=== PATIENT | male | born 1965 | race Two or more races ===

== ENCOUNTER 2021-02-01 16:42 | Emergency (ER) | payer OTHER ==
[~2021-02-01] VITALS: Ht 157.5 cm; Wt 83.6 kg
--- NOTE | 2021-02-01 17:10 | NUR ---
PT AMBULATED TO ER BED 2 WITH A STEADY GAIT.
[2021-02-01 17:14] VITALS: BP 161/116
--- NOTE | 2021-02-01 17:24 | NUR ---
55 Y/O MALE C/O EPIGASTRIC PAIN 9/10 NON-RADIATING X3DAYS. PT DENIES N/V/D. DENIES FEVER/CHILLS. DENIES CP, DENIES SOB AT THIS TIME. ABDOMEN IS SOFT, LARGE DISTENDED, NON-TENDER TO PALPATION, BOWEL SOUNDS ACTIVE X4. PMH: HTN NKA
[2021-02-01] MEDS ORDERED: AMLO5TAB PO (17:30)
[2021-02-01] MEDS ORDERED: LOSA100T1 PO (17:30)
[2021-02-01] MEDS ORDERED: [UNRECOGNIZED DRUG - OTHER] PO (17:31)
[2021-02-01] MEDS ORDERED: ONDANSETRON 4 MG/2 ML VIAL IVP ONE (18:05)
[2021-02-01] MEDS ORDERED: MORPHINE SULFATE 4 MG/ML SYR IVP ONE (18:05)
[2021-02-01] MEDS ORDERED: NACL 0.9% 1,000 ML IV ONE (18:05)
[2021-02-01 18:31] LABS: BASOPHILS # (AUTO) 0.1 K/uL (0.00-0.22); EOSINOPHILS # (AUTO) 0.2 K/uL (0-0.4); EOSINOPHILS % (AUTO) 2.6 % (0.0-4.0); HEMATOCRIT 38.4 % (36-52); HEMOGLOBIN 12.4 g/dL (12.0-18.0); LYMPHOCYTES # (AUTO) 1.6 K/uL (2.0-11.5); LYMPHOCYTES % (AUTO) 20.4 % (20.5-51.1); MEAN CORPUSCULAR HEMOGLOBIN 26 pg (27-31); MEAN CORPUSCULAR HGB CONC 32 g/dL (33-37); MEAN CORPUSCULAR VOLUME 79.6 fL (80-94); MONOCYTES # (AUTO) 0.6 K/uL (0.8-1.0); MONOCYTES % (AUTO) 7.2 % (1.7-9.3); NEUTROPHILS # (AUTO) 5.3 K/uL (1.8-7.7); NEUTROPHILS % (AUTO) 68.8 % (42.2-75.2); PLATELET COUNT (AUTO) 262 K/uL (140-450); RED BLOOD CELL COUNT(AUTO) 4.82 MIL/uL (4.20-6.10); RED CELL DISTRIBUTION WIDTH 17.7 % (11.6-13.7); WHITE BLOOD COUNT (AUTO) 7.7 K/uL (4.8-10.8)
--- NOTE | 2021-02-01 18:38 | NUR ---
PT SENT TO CT WITH TECH [id number]
[2021-02-01 18:43] LABS: ALBUMIN 3.6 g/dL (3.4-5.0); CARBON DIOXIDE 23.5 mmol/L (21-32); CREATININE 1.5 mg/dL (0.6-1.3); POTASSIUM 3.5 mmol/L (3.5-5.1); TOTAL BILIRUBIN 1.3 mg/dL (0.0-1.0)
--- NOTE | 2021-02-01 18:51 | NUR ---
PT TAKEN TO ER BED 2 VIA [facility].
[2021-02-01 18:53] LABS: APPEARANCE,URINE CLEAR (CLEAR); BILIRUBIN,URINE NEGATIVE (NEGATIVE); BLOOD, URINE TRACE-I (NEGATIVE); COLOR,URINE YELLOW (YELLOW); LEUKOCYTE ESTERASE ,URINE NEGATIVE (NEGATIVE); NITRITE, URINE NEGATIVE (NEGATIVE); UGLUCOSE NEGATIVE (NEGATIVE)
--- NOTE | 2021-02-01 19:02 | NUR ---
PT RESTING, HOB ELEVATED, VSS, WILL CONTINUE TO MONITOR.
[2021-02-01 19:14] LABS: BARBITURATE, URINE NEGATIVE ng/ml (NEG <=200); BENZODIAZEPINE, URINE NEGATIVE ng/mL (NEG <=200); CANNABINOID, URINE NEGATIVE ng/mL (NEG <=50); COCAINE, URINE NEGATIVE ng/mL (NEG <=300); OPIATE, URINE NEGATIVE ng/mL (NEG <=2000); PHENCYCLIDINE SCREEN,URINE NEGATIVE ng/mL (NEG <=25)
--- NOTE | 2021-02-01 19:30 | NUR ---
GAVE REPORT TO SERGIO OWENS. TRANSFER OF CARE AT THIS TIME.
[2021-02-01] MEDS ORDERED: MAG-27 PO (19:31)
[2021-02-01] MEDS ORDERED: NAPR-54 PO (19:31)
--- NOTE | 2021-02-01 20:00 | NUR ---
RESTING IN BED WITH EYES OPEN. IN NAD. PT STATES"I FEEL BETTER"
[2021-02-01 20:30] VITALS: BP 123/76
--- NOTE | 2021-02-04 19:17 | NUR ---
LATE ENTRY- 0.9% NS DISCONTINUED AT 2014.
== END 2021-02-01 20:30 | disposition home or self-care (01) ==
LOC: MED 16:42
DX: R10.84 Generalized abdominal pain (principal); I10 Essential (primary) hypertension
CPT/HCPCS: 36415; 74176; 80053; 80305; 81003; 83690; 85025; 93005; 96361; 96374; 96375; 99285; J2270; J2405; J7030

== ENCOUNTER 2021-02-02 23:24 | Emergency (ER) | payer OTHER ==
[~2021-02-02] VITALS: Ht 126 cm; Wt 85.4 kg
[~2021-02-02 23:24] MED LIST: AMLO5TAB PO; LOSA100T1 PO; MAG-27 PO; NAPR-54 PO; [UNRECOGNIZED DRUG - OTHER] PO
[2021-02-02 23:59] VITALS: BP 130/95
--- NOTE | 2021-02-03 00:07 | NUR ---
PT AMBULATED TO LOBBY WITH STEADY GAIT.
--- NOTE | 2021-02-03 01:00 | NUR ---
PT AMB TO BED 7
--- NOTE | 2021-02-03 01:14 | NUR ---
ASSUMED CARE OF PATIENT AT THIS TIME. PATIENT REPORTS GENERAL ABDOMINAL PAIN AND WAS SEEN YESTERDAY FOR SAME COMPLAINT
[2021-02-03] MEDS ORDERED: KETOROLAC 60 MG/2 ML VIAL IM ONE (01:45)
--- NOTE | 2021-02-03 02:41 | NUR ---
Dr. Melton examining patient.
[2021-02-03] MEDS ORDERED: OMEP40EC24 PO (02:47)
[2021-02-03] MEDS ORDERED: ACET-8386 PO (02:47)
[2021-02-03] MEDS ORDERED: IBUP-2213 PO (02:47)
[2021-02-03 02:52] VITALS: BP 133/71
--- NOTE | 2021-02-03 02:52 | NUR ---
PATIENT CLEARED FOR DISHCARGE AT THIS TIME. VOICED SOME RELIEF FROM PAIN MEDICATION, ADVISED TO FOLLOW UP WITH PCP AND RETURN IF CONFITION WORSENS. RX SENT TO PHARM. DISCHARGE TEACHING PROVIDED.
== END 2021-02-03 02:52 | disposition home or self-care (01) ==
LOC: MED 23:24
DX: R10.13 Epigastric pain (principal); I10 Essential (primary) hypertension; Z79.899 Other long term (current) drug therapy; Z90.49 Acquired absence of other specified parts of digestive tract
CPT/HCPCS: 96372; 99283; J1885

== ENCOUNTER 2021-12-01 18:04 | Emergency (ER) | payer OTHER ==
[~2021-12-01] VITALS: Ht 165.1 cm; Wt 91.6 kg
[~2021-12-01 18:04] MED LIST changes: +ACET-8386 PO; -AMLO5TAB PO; +ASPI81CT95 PO; +CARV6.252 PO; +FURO-570 PO; +HYDR-4420 PO; +ISOS20TA13 PO; -NAPR-54 PO; +OMEP40EC24 PO; -[UNRECOGNIZED DRUG - OTHER] PO
[2021-12-01 18:10] VITALS: BP 130/87
[2021-12-01 18:52] LABS: BASOPHILS # (AUTO) 0.1 K/uL (0.00-0.22); BASOPHILS % (AUTO) 0.8 % (0.0-2.0); EOSINOPHILS # (AUTO) 0.5 K/uL (0-0.4); EOSINOPHILS % (AUTO) 6.1 % (0.0-4.0); HEMATOCRIT 43.2 % (36-52); HEMOGLOBIN 13.8 g/dL (12.0-18.0); LYMPHOCYTES % (AUTO) 13.2 % (20.5-51.1); MEAN CORPUSCULAR HEMOGLOBIN 25 pg (27-31); MEAN CORPUSCULAR HGB CONC 32 g/dL (33-37); MEAN CORPUSCULAR VOLUME 77.3 fL (80-94); MONOCYTES # (AUTO) 1.3 K/uL (0.8-1.0); MONOCYTES % (AUTO) 17.5 % (1.7-9.3); NEUTROPHILS # (AUTO) 4.6 K/uL (1.8-7.7); NEUTROPHILS % (AUTO) 62.4 % (42.2-75.2); PLATELET COUNT (AUTO) 256 K/uL (140-450); RED BLOOD CELL COUNT(AUTO) 5.59 MIL/uL (4.20-6.10); RED CELL DISTRIBUTION WIDTH 16.1 % (11.6-13.7); WHITE BLOOD COUNT (AUTO) 7.4 K/uL (4.8-10.8)
[2021-12-01 19:07] LABS: ALBUMIN 3.5 g/dL (3.4-5.0); ANION GAP 12.1 (8-16); CARBON DIOXIDE 31.2 mmol/L (21-32); CREATININE 1.6 mg/dL (0.6-1.3); POTASSIUM 3.3 mmol/L (3.5-5.1); TOTAL BILIRUBIN 1.3 mg/dL (0.0-1.0)
[2021-12-01] MEDS ORDERED: FURO-572 PO (20:57)
[2021-12-01] MEDS ORDERED: BENZ100C6 PO (20:57)
[2021-12-01] MEDS ORDERED: ROB PO (20:57)
[2021-12-01 22:35] VITALS: BP 128/76
== END 2021-12-01 22:35 | disposition home or self-care (01) ==
LOC: MED 18:04
DX: I11.0 Hypertensive heart disease with heart failure (principal); I50.9 Heart failure, unspecified; R07.9 Chest pain, unspecified; R05.9 Cough, unspecified; Z20.822 Contact with and (suspected) exposure to COVID-19; Z90.49 Acquired absence of other specified parts of digestive tract; Z79.899 Other long term (current) drug therapy; Z79.82 Long term (current) use of aspirin; Z79.891 Long term (current) use of opiate analgesic
CPT/HCPCS: 36415; 71045; 80053; 83880; 84484; 85025; 85379; 87426; 93005; 99285; Q0092

== ENCOUNTER 2023-04-23 16:23 | Inpatient (IN) | payer OTHER ==
[~2023-04-23] VITALS: Ht 162.6 cm; Wt 87.1 kg
[~2023-04-23 16:23] MED LIST changes: -ACET-8386 PO; +ASPI-1822 PO; -ASPI81CT95 PO; +HYDR-1098 PO; -HYDR-4420 PO; -LOSA100T1 PO; -MAG-27 PO; -OMEP40EC24 PO
[2023-04-23 16:28] VITALS: BP 108/71; PULSE 89; RESP 20; TEMP 98.4; O2SAT 100
[2023-04-23 17:23] LABS: BASOPHILS # (AUTO) 0.1 K/uL (0.00-0.22); BASOPHILS % (AUTO) 0.8 % (0.0-2.0); EOSINOPHILS # (AUTO) 0.2 K/uL (0-0.4); EOSINOPHILS % (AUTO) 3.3 % (0.0-4.0); HEMATOCRIT 41.5 % (36-52); HEMOGLOBIN 13.2 g/dL (12.0-18.0); LYMPHOCYTES # (AUTO) 1.4 K/uL (2.0-11.5); LYMPHOCYTES % (AUTO) 19.4 % (20.5-51.1); MEAN CORPUSCULAR HEMOGLOBIN 25 pg (27-31); MEAN CORPUSCULAR HGB CONC 32 g/dL (33-37); MEAN CORPUSCULAR VOLUME 79.4 fL (80-94); MONOCYTES # (AUTO) 0.6 K/uL (0.8-1.0); MONOCYTES % (AUTO) 7.5 % (1.7-9.3); NEUTROPHILS # (AUTO) 5.1 K/uL (1.8-7.7); PLATELET COUNT (AUTO) 217 K/uL (140-450); RED BLOOD CELL COUNT(AUTO) 5.23 MIL/uL (4.20-6.10); RED CELL DISTRIBUTION WIDTH 17.6 % (11.6-13.7); WHITE BLOOD COUNT (AUTO) 7.3 K/uL (4.8-10.8)
[2023-04-23 17:35] LABS: INR 1.11 (0.8-1.2); PARTIAL THROMBOPLASTIN TIME 27.6 secs (22-35.6); PROTHROMBIN TIME 11.6 secs (10.8-13.4)
[2023-04-23 17:42] LABS: ANION GAP 13.4 (8-16); CALCIUM 8.6 mg/dL (8.5-10.1); CREATININE 1.6 mg/dL (0.6-1.3); POTASSIUM 4.4 mmol/L (3.5-5.1)
[2023-04-23] MEDS: FUROSEMIDE 40 MG/4 ML VIAL IVP ONE (18:15)
[2023-04-23 18:17] LABS: FLU A ANTIGEN negative (NEGATIVE); FLU B ANTIGEN NEGATIVE (NEGATIVE)
[2023-04-23] MEDS ORDERED: POTASSIUM CHLORIDE 10 MEQ TABER PO PRN (19:00)
[2023-04-23] MEDS ORDERED: MAG SULF 2000 MG/WATER PREMIX 50 ML IV PRN (19:00)
[2023-04-23] MEDS ORDERED: KCL 20 MEQ IN 100 mL PREMIX 200 ML IV PRN (19:00)
[2023-04-23] MEDS ORDERED: MAGNESIUM OXIDE 400 MG TAB PO PRN (19:00)
[2023-04-23] MEDS ORDERED: ACETAMINOPHEN 325 MG TAB PO PRN (19:00)
[2023-04-23] MEDS ORDERED: ONDANSETRON 4 MG/2 ML VIAL IVP PRN (19:00)
[2023-04-23] MEDS ORDERED: HYDROcodone/APAP 5/325 MG 1 TAB TAB PO PRN (19:00)
[2023-04-23] MEDS ORDERED: FUROSEMIDE 40 MG/4 ML VIAL IVP ONE (19:36)
[2023-04-23] MEDS: FUROSEMIDE 20 MG/2 ML VIAL IVP SCH (21:15)
[2023-04-24 04:49] LABS: BASOPHILS % (AUTO) 0.6 % (0.0-2.0); EOSINOPHILS # (AUTO) 0.3 K/uL (0-0.4); EOSINOPHILS % (AUTO) 3.4 % (0.0-4.0); HEMATOCRIT 40.7 % (36-52); LYMPHOCYTES # (AUTO) 1.3 K/uL (2.0-11.5); LYMPHOCYTES % (AUTO) 16.1 % (20.5-51.1); MEAN CORPUSCULAR HEMOGLOBIN 25 pg (27-31); MEAN CORPUSCULAR HGB CONC 32 g/dL (33-37); MEAN CORPUSCULAR VOLUME 78.7 fL (80-94); MONOCYTES # (AUTO) 0.6 K/uL (0.8-1.0); MONOCYTES % (AUTO) 7.4 % (1.7-9.3); NEUTROPHILS # (AUTO) 5.9 K/uL (1.8-7.7); NEUTROPHILS % (AUTO) 72.5 % (42.2-75.2); PLATELET COUNT (AUTO) 245 K/uL (140-450); RED BLOOD CELL COUNT(AUTO) 5.17 MIL/uL (4.20-6.10); RED CELL DISTRIBUTION WIDTH 17.4 % (11.6-13.7); WHITE BLOOD COUNT (AUTO) 8.2 K/uL (4.8-10.8)
[2023-04-24 05:39] LABS: ANION GAP 10.3 (8-16); CALCIUM 8.7 mg/dL (8.5-10.1); CARBON DIOXIDE 28.3 mmol/L (21-32); CREATININE 1.6 mg/dL (0.6-1.3); POTASSIUM 3.6 mmol/L (3.5-5.1)
[2023-04-24 05:58] LABS: PHOSPHORUS 2.7 mg/dL (2.5-4.9)
[2023-04-24 09:00] VITALS: PULSE 89; RESP 20; O2SAT 96
[2023-04-24] MEDS: DOCUSATE SODIUM 100 MG GELCAP PO SCH (09:26)
[2023-04-24 12:00] VITALS: BP 127/85; PULSE 63; PULSE 76; RESP 20; TEMP 97.7; O2SAT 97
[2023-04-24 16:00] VITALS: BP 138/98; PULSE 70; RESP 20; TEMP 97.5; O2SAT 97
[2023-04-24 20:00] VITALS: BP 142/106; PULSE 68; PULSE 76; PULSE 83; RESP 17; RESP 19; TEMP 97.4; O2SAT 96; O2SAT 97
[2023-04-25] VITALS: BP 133/99; PULSE 71; PULSE 74; RESP 17; TEMP 98.1; O2SAT 93
[2023-04-25 03:55] VITALS: BP 137/96; PULSE 68; RESP 17; TEMP 98.3; O2SAT 96
[2023-04-25 04:00] VITALS: PULSE 72
[2023-04-25 06:44] LABS: BASOPHILS # (AUTO) 0.1 K/uL (0.00-0.22); BASOPHILS % (AUTO) 0.6 % (0.0-2.0); EOSINOPHILS # (AUTO) 0.3 K/uL (0-0.4); EOSINOPHILS % (AUTO) 3.3 % (0.0-4.0); HEMOGLOBIN 13.8 g/dL (12.0-18.0); LYMPHOCYTES # (AUTO) 1.5 K/uL (2.0-11.5); LYMPHOCYTES % (AUTO) 18.4 % (20.5-51.1); MEAN CORPUSCULAR HEMOGLOBIN 25 pg (27-31); MEAN CORPUSCULAR HGB CONC 32 g/dL (33-37); MEAN CORPUSCULAR VOLUME 78.8 fL (80-94); MONOCYTES # (AUTO) 0.8 K/uL (0.8-1.0); MONOCYTES % (AUTO) 9.2 % (1.7-9.3); NEUTROPHILS # (AUTO) 5.7 K/uL (1.8-7.7); NEUTROPHILS % (AUTO) 68.5 % (42.2-75.2); PLATELET COUNT (AUTO) 252 K/uL (140-450); RED BLOOD CELL COUNT(AUTO) 5.46 MIL/uL (4.20-6.10); RED CELL DISTRIBUTION WIDTH 17.7 % (11.6-13.7); WHITE BLOOD COUNT (AUTO) 8.3 K/uL (4.8-10.8)
[2023-04-25 07:10] LABS: PHOSPHORUS 3.3 mg/dL (2.5-4.9)
[2023-04-25 07:24] LABS: ANION GAP 9.8 (8-16); CALCIUM 8.6 mg/dL (8.5-10.1); CARBON DIOXIDE 30.3 mmol/L (21-32); CREATININE 1.6 mg/dL (0.6-1.3); POTASSIUM 3.1 mmol/L (3.5-5.1)
[2023-04-25 08:00] VITALS: BP 153/90; PULSE 62; PULSE 74; RESP 18; TEMP 96.7; O2SAT 100
[2023-04-25 14:50] VITALS: BP 153/90; PULSE 74; RESP 18; TEMP 96.7
== END 2023-04-25 16:25 | disposition home or self-care (01) | DRG 194 ==
LOC: MED 16:23 → MTU 18:58 → OBSVTOIN 19:04 → MTU 04-24 06:36
PROVIDERS: ADMIT Hospitalist; ATTEND Hospitalist
DX: I11.0 Hypertensive heart disease with heart failure (principal); N17.0 Acute kidney failure with tubular necrosis; E11.9 Type 2 diabetes mellitus without complications; I50.41 Acute combined systolic (congestive) and diastolic (congestive) heart failure; R06.00 Dyspnea, unspecified; R06.03 Acute respiratory distress; Z20.822 Contact with and (suspected) exposure to COVID-19
CPT/HCPCS: 36415; 71045; 80048; 83735; 83880; 84100; 84484; 85025; 85610; 85730; 87081; 93005; 96374; 99285; J1644; J1940

== ENCOUNTER 2023-12-16 10:32 | Emergency (ER) | payer OTHER ==
[~2023-12-16] VITALS: Ht 162.6 cm; Wt 82.1 kg
[2023-12-16 10:34] VITALS: BP 143/97; PULSE 82; RESP 20; TEMP 97.1; O2SAT 100
[2023-12-16] MEDS: FUROSEMIDE 40 MG/4 ML VIAL IVP ONE (11:21)
[2023-12-16 11:31] LABS: BASOPHILS # (AUTO) 0.1 K/uL (0.00-0.22); BASOPHILS % (AUTO) 1.2 % (0.0-2.0); EOSINOPHILS # (AUTO) 0.3 K/uL (0-0.4); HEMATOCRIT 44.8 % (36-52); HEMOGLOBIN 14.1 g/dL (12.0-18.0); LYMPHOCYTES # (AUTO) 1.3 K/uL (2.0-11.5); LYMPHOCYTES % (AUTO) 13.6 % (20.5-51.1); MEAN CORPUSCULAR HEMOGLOBIN 25 pg (27-31); MEAN CORPUSCULAR HGB CONC 31 g/dL (33-37); MEAN CORPUSCULAR VOLUME 79.9 fL (80-94); MONOCYTES # (AUTO) 0.9 K/uL (0.8-1.0); MONOCYTES % (AUTO) 9.7 % (1.7-9.3); NEUTROPHILS # (AUTO) 7.1 K/uL (1.8-7.7); NEUTROPHILS % (AUTO) 72.5 % (42.2-75.2); PLATELET COUNT (AUTO) 252 K/uL (140-450); RED BLOOD CELL COUNT(AUTO) 5.61 MIL/uL (4.20-6.10); RED CELL DISTRIBUTION WIDTH 16.2 % (11.6-13.7); WHITE BLOOD COUNT (AUTO) 9.8 K/uL (4.8-10.8)
[2023-12-16 11:40] LABS: CALCIUM 9.3 mg/dL (8.5-10.1); CARBON DIOXIDE 31.9 mmol/L (21-32); CREATININE 1.7 mg/dL (0.6-1.3); POTASSIUM 3.9 mmol/L (3.5-5.1)
[2023-12-16 11:46] LABS: INR 1.03 (0.8-1.2); PARTIAL THROMBOPLASTIN TIME 25.8 secs (22-35.6); PROTHROMBIN TIME 10.8 secs (10.8-13.4)
[2023-12-16 11:52] LABS: ALANINE AMINOTRANSFERASE 84 U/L (12-78); ALBUMIN 3.5 g/dL (3.4-5.0); ALKALINE PHOSPHATASE 68 U/L (50-136); ASPARTATE AMINOTRANSFERASE 40 U/L (15-37); BILIRUBIN,DIRECT 0.2 mg/dL (0.0-0.3); TOTAL BILIRUBIN 0.8 mg/dL (0.0-1.0); TOTAL PROTEIN, SERUM 7.4 g/dL (6.4-8.2)
[2023-12-16 16:30] VITALS: BP 129/81; PULSE 71; RESP 18; TEMP 97.1; O2SAT 96
== END 2023-12-16 16:34 | disposition home or self-care (01) ==
LOC: MED 10:32
DX: I11.0 Hypertensive heart disease with heart failure (principal); I50.9 Heart failure, unspecified; E11.9 Type 2 diabetes mellitus without complications; Z79.899 Other long term (current) drug therapy
CPT/HCPCS: 36415; 71045; 80048; 80076; 83880; 84484; 85025; 85610; 85730; 93005; 96374; 99285; J1940

== ENCOUNTER 2023-12-28 07:22 | Observation (INO) | payer OTHER ==
[~2023-12-28] VITALS: Ht 162.6 cm; Wt 93.4 kg
[~2023-12-28 07:22] MED LIST changes: -ASPI-1822 PO
[2023-12-28 07:29] VITALS: BP 129/101; PULSE 86; RESP 20; TEMP 98.3; O2SAT 98
[2023-12-28] MEDS: FUROSEMIDE 40 MG/4 ML VIAL IVP ONE (08:12)
[2023-12-28 08:20] LABS: BASOPHILS % (AUTO) 0.4 % (0.0-2.0); EOSINOPHILS # (AUTO) 0.2 K/uL (0-0.4); EOSINOPHILS % (AUTO) 2.3 % (0.0-4.0); HEMATOCRIT 42.8 % (36-52); HEMOGLOBIN 13.5 g/dL (12.0-18.0); LYMPHOCYTES % (AUTO) 14.4 % (20.5-51.1); MEAN CORPUSCULAR HEMOGLOBIN 25 pg (27-31); MEAN CORPUSCULAR HGB CONC 32 g/dL (33-37); MEAN CORPUSCULAR VOLUME 78.9 fL (80-94); MONOCYTES # (AUTO) 0.6 K/uL (0.8-1.0); NEUTROPHILS # (AUTO) 5.3 K/uL (1.8-7.7); NEUTROPHILS % (AUTO) 74.9 % (42.2-75.2); PLATELET COUNT (AUTO) 169 K/uL (140-450); RED BLOOD CELL COUNT(AUTO) 5.42 MIL/uL (4.20-6.10); RED CELL DISTRIBUTION WIDTH 16.3 % (11.6-13.7); WHITE BLOOD COUNT (AUTO) 7.1 K/uL (4.8-10.8)
[2023-12-28 08:38] LABS: ANION GAP 11.1 (8-16); CALCIUM 8.7 mg/dL (8.5-10.1); CARBON DIOXIDE 26.8 mmol/L (21-32); CREATININE 1.5 mg/dL (0.6-1.3); POTASSIUM 3.9 mmol/L (3.5-5.1)
[2023-12-28] MEDS ORDERED: ONDANSETRON 4 MG/2 ML VIAL IVP PRN (10:20)
[2023-12-28] MEDS ORDERED: MAGNESIUM OXIDE 400 MG TAB PO PRN (10:20)
[2023-12-28] MEDS ORDERED: MORPHINE SULFATE 4 MG/ML SYR IVP PRN (10:20)
[2023-12-28] MEDS ORDERED: POTASSIUM CHLORIDE 10 MEQ TABER PO PRN (10:20)
[2023-12-28] MEDS ORDERED: MAG SULF 2000 MG/WATER PREMIX 50 ML IV PRN (10:20)
[2023-12-28] MEDS ORDERED: ACETAMINOPHEN 325 MG TAB PO PRN (10:20)
[2023-12-28 11:33] VITALS: PULSE 60; RESP 20
[2023-12-28 12:00] VITALS: BP 132/88; PULSE 52; PULSE 64; RESP 20; TEMP 97.6; O2SAT 97
[2023-12-28 16:00] VITALS: BP 121/82; PULSE 53; PULSE 60; RESP 20; TEMP 97.6; O2SAT 97
[2023-12-28] MEDS: FUROSEMIDE 40 MG/4 ML VIAL IVP SCH (16:37)
[2023-12-28] MEDS: HYDROcodone/APAP 5/325 MG 1 TAB TAB PO PRN (16:37)
[2023-12-28 20:00] VITALS: BP 110/69; PULSE 57; PULSE 60; PULSE 82; RESP 18; RESP 20; TEMP 97.2; O2SAT 97
[2023-12-29] VITALS: BP 132/94; PULSE 53; PULSE 63; RESP 20; TEMP 97.6; O2SAT 97
[2023-12-29 04:00] VITALS: BP 148/88; PULSE 63; PULSE 69; RESP 18; TEMP 97.3; O2SAT 98
[2023-12-29 05:28] LABS: BASOPHILS % (AUTO) 0.6 % (0.0-2.0); EOSINOPHILS # (AUTO) 0.3 K/uL (0-0.4); EOSINOPHILS % (AUTO) 4.5 % (0.0-4.0); HEMATOCRIT 43.9 % (36-52); HEMOGLOBIN 13.8 g/dL (12.0-18.0); LYMPHOCYTES # (AUTO) 1.8 K/uL (2.0-11.5); LYMPHOCYTES % (AUTO) 25.3 % (20.5-51.1); MEAN CORPUSCULAR HEMOGLOBIN 25 pg (27-31); MEAN CORPUSCULAR HGB CONC 32 g/dL (33-37); MEAN CORPUSCULAR VOLUME 79.1 fL (80-94); MONOCYTES # (AUTO) 0.8 K/uL (0.8-1.0); MONOCYTES % (AUTO) 10.9 % (1.7-9.3); NEUTROPHILS # (AUTO) 4.2 K/uL (1.8-7.7); NEUTROPHILS % (AUTO) 58.7 % (42.2-75.2); PLATELET COUNT (AUTO) 174 K/uL (140-450); RED BLOOD CELL COUNT(AUTO) 5.55 MIL/uL (4.20-6.10); RED CELL DISTRIBUTION WIDTH 16.3 % (11.6-13.7); WHITE BLOOD COUNT (AUTO) 7.1 K/uL (4.8-10.8)
[2023-12-29 05:57] LABS: ANION GAP 8.4 (8-16); CARBON DIOXIDE 32.1 mmol/L (21-32); CREATININE 1.7 mg/dL (0.6-1.3); POTASSIUM 3.5 mmol/L (3.5-5.1)
[2023-12-29 08:00] VITALS: BP 141/100; PULSE 71; PULSE 72; PULSE 81; RESP 18; TEMP 98.2; O2SAT 96
[2023-12-29 12:00] VITALS: BP 134/93; PULSE 70; PULSE 72; RESP 18; TEMP 98.1; O2SAT 96
[2023-12-29] MEDS ORDERED: CARV6.252 PO (13:50)
[2023-12-29] MEDS ORDERED: FURO-570 PO (13:52)
[2023-12-29] MEDS ORDERED: HYDR-1098 PO (13:53)
[2023-12-29] MEDS ORDERED: ISOS20TA13 PO (13:55)
[2023-12-29 16:00] VITALS: BP 140/107; PULSE 60; PULSE 72; RESP 18; TEMP 97.2; O2SAT 99
[2023-12-29] MEDS: FUROSEMIDE 40 MG TAB PO SCH (16:30)
== END 2023-12-29 17:15 | disposition home or self-care (01) ==
LOC: MED 07:22 → MTU 10:16
PROVIDERS: ADMIT Student in an Organized Health Care Education/Training Program; ATTEND Student in an Organized Health Care Education/Training Program
DX: I13.0 Hypertensive heart and chronic kidney disease with heart failure and stage 1 through stage 4 chronic kidney disease, or unspecified chronic kidney disease (principal); E11.22 Type 2 diabetes mellitus with diabetic chronic kidney disease; I50.23 Acute on chronic systolic (congestive) heart failure; N18.30 Chronic kidney disease, stage 3 unspecified; N17.9 Acute kidney failure, unspecified; E78.5 Hyperlipidemia, unspecified; R06.01 Orthopnea; Z79.899 Other long term (current) drug therapy
CPT/HCPCS: 36415; 71045; 80048; 83735; 83880; 84484; 85025; 93005; 96365; 96366; 96372; 96375; 96376; 99285; G0378; J0696; J1644; J1940; J7060